=== PATIENT | female | born 2000 | race Caucasian/White ===

== ENCOUNTER 2023-11-19 17:19 | Emergency (ER) | payer BC, SELFPAY ==
[2023-11-19 17:19] VITALS: BP 123/81; PULSE 102; RESP 16; TEMP 36.4; O2SAT 100
[2023-11-19] MEDS: ONDANSETRON INJ 4 MG/2 ML VIAL IV PUSH ×2 (17:53→19:41)
[2023-11-19] MEDS: SODIUM CHLORIDE 0.9% IV 1,000 ML 999 ML IV CONT ×2 (17:53→18:53)
[2023-11-19 18:13] LABS: Appearance Urine Clear (Clear); Bacteria Urine None Seen /hpf; Bilirubin Urine Negative (Negative); Blood Urine Trace (Negative); Color Urine Yellow (Yellow); Glucose Urine UA Negative (Negative); Ketones Urine 4+ mg/dL (Negative); Leukocyte Esterase Ur Negative LEU/UL (Negative); Nitrate Urine Negative (Negative); Non Pathogenic Casts 0-2; Protein Urine Trace mg/dL (Negative); RBC Urine 0-2 /hpf (0-2); Squamous Epithelial Cell Urine None Seen /hpf (Few); WBC Urine 0-5 /hpf (0-3); pH Urine 5.5 (5.0-9.0)
[2023-11-19 18:17] LABS: Add Urine Microscopic? YES; Specific Grav Ur 1.031 (1.001-1.035)
[2023-11-19 18:25] LABS: Basophils Percent Auto 0.2 % (0.2-1.2); Eosinophils Percent Auto 0.1 % (0-4.4); Hematocrit 44.1 % (37.0-47.0); Hemoglobin 14.7 g/dL (12.0-15.0); Immature Granulocyte Absolute 0.02 K/mm3 (0.00-0.031); Immature Granulocyte Percent A 0.2 % (0-0.5); Lymphocytes Absolute Auto 0.79 K/mm3 (0.9-3.2); Lymphocytes Percent Auto 8.3 % (18.3-44.2); Mean Corpuscular HGB Conc 33.3 g/dl (32-36); Mean Corpuscular Hemoglobin 29.2 pg (26-34); Mean Corpuscular Volume 87.5 fl (80-100); Mean Platelet Volume 10.6 fl (7.4-10.4); Monocytes Absolute Auto 0.3 K/mm3 (0.1-0.6); Monocytes Percent Auto 3.3 % (2.6-8.5); Neutrophils Absolute Auto 8.4 K/mm3 (1.3-6.7); Neutrophils Percent Auto 87.9 % (45.5-73.1); Platelet Count Result 305 k/mm3 (150-375); Red Blood Count 5.04 M/mm3 (4.2-5.4); White Blood Count 9.6 K/mm3 (4.5-10.0)
[2023-11-19 18:38] LABS: SPREG INTERNAL CONTROL Positive; Serum Qual hCG Negative
--- NOTE | 2023-11-19 18:40 | ED.GENADULT ---
HPI - General Adult General Chief complaint: Nausea/Vomiting/Diarrhea Stated complaint: vomiting Time Seen by Provider: 11/19/23 17:46 History of Present Illness HPI narrative: Patient is a 23-year-old female who presents the emergency department this afternoon complaining of nausea and vomiting since 1:00 a.m. this morning. Patient believes that the cause of her nausea and vomiting is one of her home medication, Wegovy which she has been started on in August initially 0.25 mg than 0.5 and yesterday her dose was increased to 1 mg. Patient was informed that these are known side effects from this medication. She states that she has not been able to keep anything since 1:00 a.m. this. Denies any abdominal pain just some mild cramping when she vomits. Other than that she is denying any additional symptoms include any dysuria or hematuria, no chest pain or shortness of breath and denies any fevers or chills at home. No additional symptoms or concerns at this time. Related Data Home Medications Medication Instructions Recorded Confirmed alprazolam 0.25 mg tablet 0.25 mg PO QHS 12/07/22 06/08/23 bupropion HCl 150 mg tablet,12 hr 150 mg PO DAILY 12/07/22 06/08/23 sustained-release dextroamphetamine-amphetamine 30 30 mg PO DAILY 12/07/22 06/08/23 mg tablet (Adderall) sertraline 200 mg capsule 200 mg PO DAILY 12/07/22 06/08/23 Allergies Allergy/AdvReac Type Severity Reaction Status Date / Time Penicillins Allergy Severe Anaphylactic Verified 06/08/23 12:58 Shock Review of Systems Review of Systems: All systems are reviewed and are negative unless stated otherwise in the HPI. [facility] Family History Family History Father Alcohol abuse Depression Sibling Depression Mother Diabetes mellitus Pre-Diabetes Grandparent Diabetes mellitus Social History Social History Smoking status: Never smoker Alcohol intake: never Substance use: never Lack of Transportation: No Lack of Food: Never True Current Housing: I Have Housing Concerned About Future Housing: No Difficulty Paying Gas/Electric Bills: No Difficulty Paying for Meds: No Currently Unemployed: No Education: Bachelor's Degree Difficulty w/ Childcare or Family Care: No Occupation/Education: occupation Gender identity (if verbalized by the patient): Female Exam Narrative: General: Alert, awake, afebrile, in no acute distress. HEENT: PERRL, no rhinorrhea, no post nasal drip, oropharynx clear. Cardiovascular: Regular rate and rhythm, no murmurs, rubs or gallops, no peripheral edema. Respiratory: Clear to auscultation bilaterally, no tachypnea, no wheezing, no rhonchi, no rubs, no respiratory distress. Abdomen: Soft, nontender, nondistended, no rebound, no guarding, no peritoneal signs. Musculoskeletal: No joint swelling or deformity, normal muscle tone. Skin: No rashes or petechia, no signs of infection. Neurological: Alert and oriented to person, place, and time. Follows all commands. No focal deficits, speech is clear and fluent. Course Vital Signs Vital signs: Vital Signs Temperature 97.6 F 11/19/23 17:19 Pulse Rate 102 H 11/19/23 17:19 Respiratory Rate 16 11/19/23 17:19 Blood Pressure 123/81 11/19/23 17:19 Pulse Oximetry 100 11/19/23 17:19 Oxygen Delivery Room Air 11/19/23 17:19 Temperature 97.6 F 11/19/23 17:19 Pulse Rate 76 11/19/23 18:53 Respiratory Rate 16 11/19/23 18:53 Blood Pressure 122/61 11/19/23 18:53 Pulse Oximetry 100 11/19/23 18:53 Oxygen Delivery Room Air 11/19/23 17:19 Medical Decision Making MDM Narrative Medical decision making narrative: The patient was evaluated by myself in the emergency department. History is obtained from patient who is an independent historian and physical exam was performed. External medical records were re
[2023-11-19 18:41] LABS: Alanine Aminotransferase 13 U/L (6-35); Alkaline Phosphatase 82 U/L (38-126); Anion Gap 19 mmol/L (4-12); Aspartate Amino Transferase 17 U/L (14-36); Bilirubin,Total 0.7 mg/dL (0.2-1.3); Blood Urea Nitrogen 10 mg/dL (7-17); Calcium 9.3 mg/dL (8.4-10.2); Carbon Dioxide 15 mmol/L (22-30); Chloride 107 mmol/L (98-107); Estimated CRCL calculation 101 ml/min; Estimated Glomerular Filt Rate > 60; Glucose 78 mg/dL (65-110); Lipase 64 U/L (23-300); Potassium 4.2 mmol/L (3.4-5.0); Sodium 141 mmol/L (137-145)
[2023-11-19 18:53] VITALS: BP 122/61; PULSE 76; RESP 16; O2SAT 100
[2023-11-19] MEDS: METOCLOPRAMIDE HCL INJ 10 MG/2 ML VIAL IV PUSH (20:53)
[2023-11-19] MEDS: diphenhydrAMINE HCl INJ 50 MG/ML VIAL IV PUSH (20:53)
[2023-11-19 22:28] VITALS: BP 114/64; PULSE 71; RESP 15; O2SAT 100
== END 2023-11-19 22:30 | disposition home or self-care (01) ==
PROVIDERS: Emergency Provider Emergency Medicine; PCP Internal Medicine
DX: R11.2 Nausea with vomiting, unspecified (principal); E86.0 Dehydration; E87.20 Acidosis, unspecified
CPT/HCPCS: 36415; 80053; 81001; 81025; 83690; 84703; 85025; 96361; 96374; 96375; 96376; 99284; J1200; J2405; J2765; J7030

== ENCOUNTER 2023-11-21 19:24 | Emergency (ER) | payer BC, SELFPAY ==
--- NOTE | ~2023-11-21 | CT_ITS ---
EXAMINATION: CT abdomen pelvis w con DATE: 11/21/2023 21:56 INDICATION: Vomiting. TECHNIQUE: Computed tomography (CT) of the abdomen and pelvis was performed with 100 mL Omnipaque 350 intravenous contrast. Automated exposure control and iterative reconstruction technique were employe d. The dose-length product was 360.41 mGy-cm. COMPARISON: None. FINDINGS: The visualized portions of the lung bases are clear without pneumonia or pleural effusion. The heart size is normal. No pericardial effusion. The liver, gallbladder, spleen, pancreas, adrenal glands, and kidneys are normal. There is an intrauterine device in expected position. There are no di lated loops of bowel. The appendix is not visualized. There are no pathologically enlarged lymph node s. There is no ascites. There are Schmorl's nodes of the superior endplates of T10 and T11. IMPRESSION: 1. No etiology for the patient's symptoms. Reviewed, dictated and finalized at location E.
[2023-11-21 19:36] VITALS: BP 123/90; PULSE 85; RESP 16; TEMP 36.4; O2SAT 100
[2023-11-21 21:14] VITALS: BP 129/81; PULSE 85; RESP 16; O2SAT 100
[2023-11-21] MEDS: METOCLOPRAMIDE HCL INJ 10 MG/2 ML VIAL IV PUSH (21:15)
[2023-11-21] MEDS: diphenhydrAMINE HCl INJ 50 MG/ML VIAL 25 MG IV PUSH (21:15)
[2023-11-21] MEDS: SODIUM CHLORIDE 0.9% IV 1,000 ML 999 ML IV CONT ×2 (21:15→22:06)
[2023-11-21 21:21] LABS: Basophils Percent Auto 0.4 % (0.2-1.2); Eosinophils Percent Auto 0.2 % (0-4.4); Hematocrit 44.5 % (37.0-47.0); Immature Granulocyte Absolute 0.04 K/mm3 (0.00-0.031); Immature Granulocyte Percent A 0.4 % (0-0.5); Lymphocytes Absolute Auto 1.04 K/mm3 (0.9-3.2); Lymphocytes Percent Auto 9.4 % (18.3-44.2); Mean Corpuscular HGB Conc 33.7 g/dl (32-36); Mean Corpuscular Hemoglobin 29.2 pg (26-34); Mean Corpuscular Volume 86.7 fl (80-100); Mean Platelet Volume 10.4 fl (7.4-10.4); Monocytes Absolute Auto 0.5 K/mm3 (0.1-0.6); Monocytes Percent Auto 4.5 % (2.6-8.5); Neutrophils Absolute Auto 9.5 K/mm3 (1.3-6.7); Neutrophils Percent Auto 85.1 % (45.5-73.1); Platelet Count Result 297 k/mm3 (150-375); Red Blood Count 5.13 M/mm3 (4.2-5.4); Red Cell Distribution Width 13.1 % (11.5-14.5); White Blood Count 11.1 K/mm3 (4.5-10.0)
[2023-11-21 21:24] LABS: Appearance Urine Clear (Clear); Bacteria Urine None Seen /hpf; Bilirubin Urine Negative (Negative); Blood Urine Negative (Negative); Color Urine Yellow (Yellow); Glucose Urine UA Negative (Negative); Ketones Urine 4+ mg/dL (Negative); Leukocyte Esterase Ur Negative LEU/UL (Negative); Nitrate Urine Negative (Negative); Protein Urine 1+ mg/dL (Negative); RBC Urine 0-2 /hpf (0-2); Squamous Epithelial Cell Urine None Seen /hpf (Few); WBC Urine 0-5 /hpf (0-3); pH Urine 5.5 (5.0-9.0)
[2023-11-21 21:27] LABS: Specific Grav Ur 1.032 (1.001-1.035)
[2023-11-21 21:28] LABS: Add Urine Microscopic? YES
[2023-11-21 21:31] LABS: Alanine Aminotransferase 12 U/L (6-35); Albumin Level 5.3 g/dL (3.5-5.1); Alkaline Phosphatase 86 U/L (38-126); Anion Gap 19 mmol/L (4-12); Aspartate Amino Transferase 18 U/L (14-36); Bilirubin,Total 0.9 mg/dL (0.2-1.3); Blood Urea Nitrogen 8 mg/dL (7-17); Calcium 9.6 mg/dL (8.4-10.2); Carbon Dioxide 13 mmol/L (22-30); Chloride 107 mmol/L (98-107); Estimated CRCL calculation 101 ml/min; Estimated Glomerular Filt Rate > 60; Glucose 76 mg/dL (65-110); Lipase 180 U/L (23-300); Potassium 4.1 mmol/L (3.4-5.0); Sodium 139 mmol/L (137-145)
--- NOTE | 2023-11-21 22:06 | ED.NAVMDI ---
HPI - Nausea/Vomiting/Diarrhea General Chief complaint: Nausea/Vomiting/Diarrhea <Mandi Ortega PA-C - Last Filed: 11/22/23 17:46> Stated complaint: N/V X3D <KVNG Walker Last Filed: 11/22/23 17:46> Time Seen by Provider: 11/21/23 20:23 <KVNG Walker Last Filed: 11/22/23 17:46> Source: patient <KVNG Walker Last Filed: 11/22/23 17:46> Mode of arrival: ambulatory <KVNG Walker Last Filed: 11/22/23 17:46> Limitations: no limitations <KVNG Walker Last Filed: 11/22/23 17:46> History of Present Illness HPI Narrative: This is a 23-year-old female that presents to the emergency department for nausea and vomiting. Ongoing since her recent Wegovy shot. She has not been able to keep anything down. She was evaluated in the ER and hydrated with improvement. Able to be discharged. Reports since being discharged oral nausea medication is not helping. Denies fever, dysuria, diarrhea. <KVNG Walker Last Filed: 11/22/23 17:46> Related Data Home medications: Home Medications Medication Instructions Recorded Confirmed alprazolam 0.25 mg tablet 0.25 mg PO QHS 12/07/22 06/08/23 bupropion HCl 150 mg tablet,12 hr 150 mg PO DAILY 12/07/22 06/08/23 sustained-release dextroamphetamine-amphetamine 30 30 mg PO DAILY 12/07/22 06/08/23 mg tablet (Adderall) sertraline 200 mg capsule 200 mg PO DAILY 12/07/22 06/08/23 <KVNG Walker Last Filed: 11/22/23 17:46> Allergies/Adverse reactions: Allergies Allergy/AdvReac Type Severity Reaction Status Date / Time Penicillins Allergy Severe Anaphylactic Verified 11/21/23 19:25 Shock <KVNG Walker Last Filed: 11/22/23 17:46> Review of Systems Review of Systems: CONSTITUTIONAL: Denies fever GASTROINTESTINAL: Reports abdominal pain, nausea, vomiting GENITOURINARY: Denies dysuria <Mandi Ortega PA-C - Last Filed: 11/22/23 17:46> All systems reviewed & are unremarkable except as noted in HPI and below <Mandi Ortega PA-C - Last Filed: 11/22/23 17:46> PMFSH Past Medical History Medical History: Medical History (Updated 11/22/23 @ 01:57 by Mandi Ortega PA-C) Anxiety <Mandi Ortega PA-C - Last Filed: 11/22/23 17:46> Family History Family History: Family History Father Alcohol abuse Depression Sibling Depression Mother Diabetes mellitus Pre-Diabetes Grandparent Diabetes mellitus <Mandi Ortega PA-C - Last Filed: 11/22/23 17:46> Social History Social History: Social History Smoking status: Never smoker Alcohol intake: never Substance use: never Lack of Transportation: No Lack of Food: Never True Current Housing: I Have Housing Concerned About Future Housing: No Difficulty Paying Gas/Electric Bills: No Difficulty Paying for Meds: No Currently Unemployed: No Education: Bachelor's Degree Difficulty w/ Childcare or Family Care: No Occupation/Education: occupation Gender identity (if verbalized by the patient): Female <Mandi Ortega PA-C - Last Filed: 11/22/23 17:46> Exam Narrative: GENERAL: Well-appearing, well-nourished, and in no acute distress. HEAD: Normocephalic, atraumatic. EYES: EOMI. ENT: Nares clear, no rhinorrhea or epistaxis. Mucous membranes moist. CHEST: Clear to auscultation. No respiratory distress. No wheezes rales or rhonchi HEART: Regular rate and rhythm. No murmur heard. Normal peripheral pulses. ABDOMEN: Soft, nontender, nondistended, normal active bowel sounds. EXTREMITIES: Normal range of motion. No edema. SKIN: Warm, dry, no rash. NEURO: No focal deficits. Alert and oriented x3. PSYCH: Normal mood and affect <Mandi Ortega PA-C - Last Filed: 11/22/23 17:46> Course Course Emergency Course: Patient natalie
[2023-11-21 23:50] VITALS: BP 126/80; PULSE 89; RESP 13; O2SAT 100
[2023-11-22 00:37] LABS: Anion Gap 15 mmol/L (4-12); Blood Urea Nitrogen 5 mg/dL (7-17); Calcium 8.4 mg/dL (8.4-10.2); Carbon Dioxide 12 mmol/L (22-30); Chloride 111 mmol/L (98-107); Estimated CRCL calculation 119 ml/min; Estimated Glomerular Filt Rate > 60; Glucose 73 mg/dL (65-110); Potassium 3.7 mmol/L (3.4-5.0); Sodium 138 mmol/L (137-145)
[2023-11-22] MEDS: DEXTROSE 5%/0.45% SOD CHL 1,000 ML 1000 ML IV CONT (00:53)
[2023-11-22] MEDS: ONDANSETRON INJ 4 MG/2 ML VIAL IV PUSH (00:53)
[2023-11-22] MEDS: GLUCAGON FOR INJ 1 MG VIAL IV PUSH (01:29)
[2023-11-22 02:39] LABS: Anion Gap 10 mmol/L (4-12); Blood Urea Nitrogen 4 mg/dL (7-17); Calcium 8.2 mg/dL (8.4-10.2); Carbon Dioxide 15 mmol/L (22-30); Chloride 111 mmol/L (98-107); Estimated CRCL calculation 119 ml/min; Estimated Glomerular Filt Rate > 60; Glucose 64 mg/dL (65-110); Sodium 136 mmol/L (137-145)
[2023-11-22 02:50] VITALS: BP 124/74; PULSE 81; RESP 16; O2SAT 100
== END 2023-11-22 03:31 | disposition home or self-care (01) ==
PROVIDERS: Physician Assistant; Emergency Provider Emergency Medicine; PCP Internal Medicine
DX: R11.2 Nausea with vomiting, unspecified (principal); E86.0 Dehydration; F41.9 Anxiety disorder, unspecified; Z79.899 Other long term (current) drug therapy; T38.3X5A Adverse effect of insulin and oral hypoglycemic [antidiabetic] drugs, initial encounter
CPT/HCPCS: 36415; 74177; 80048; 80053; 81001; 81025; 83690; 85025; 96361; 96372; 96374; 96375; 99284; J1200; J1610; J2405; J2765; J7030; Q9967